=== PATIENT | female | born 1980 | race Caucasian/White ===

== ENCOUNTER 2018-10-27 16:42 | Emergency (ER) | payer MEDICAID ==
[~2018-10-27] VITALS: Ht 165.1 cm; Wt 56.7 kg
[2018-10-27 16:51] VITALS: BP 130/80
--- NOTE | 2018-10-27 17:04 | NUR ---
Patient ambulated to bed 8. RN evaluating patient at bedside.
--- NOTE | 2018-10-27 17:10 | NUR ---
C/O DIZZINESS & LUQ ABDOMINAL PAIN & DIABETIC NEUROPATHY X2 DAYS. DISCHARGE FROM [facility] 09/28/18 WITH DX : HYPOGLYCEMIA, SEVERE IMPACTION. PT STATES SHE HAS ANXIETY AND WANTS ATIVAN. PT DENIES N/V/D/FEVER. FSBS 232, PT STATES THIS IS A "NORMAL NUMBER FOR ME". ABDOMEN SOFT, FLAT, NON TENDER. LBM 10/25/18. SIDE RAIL UP X1, BED IN LOW POSITION
--- NOTE | 2018-10-27 17:20 | NUR ---
DR. NOBLE AT BEDSIDE
[2018-10-27] MEDS ORDERED: KETOROLAC 30 MG/ML VIAL IM ONE (17:25)
[2018-10-27 17:48] VITALS: BP 130/80
--- NOTE | 2018-10-27 17:49 | NUR ---
Patient discharged with v/s stable. Written and verbal after care instructions given and explained. Patient verbalized understanding. Ambulatory with steady gait. All questions addressed prior to discharge. Advised to follow up with PMD.
== END 2018-10-27 17:49 | disposition home or self-care (01) ==
LOC: MED 16:42
DX: E11.40 Type 2 diabetes mellitus with diabetic neuropathy, unspecified (principal); F17.210 Nicotine dependence, cigarettes, uncomplicated; Z76.5 Malingerer [conscious simulation]
CPT/HCPCS: 96372; 99283; J1885

== ENCOUNTER 2019-10-29 22:45 | Emergency (ER) | payer MEDICAID, OTHER ==
[~2019-10-29] VITALS: Ht 157.5 cm; Wt 61.2 kg
[2019-10-29 22:47] VITALS: BP 89/51
[2019-10-29] MEDS ORDERED: NACL 0.9% 1,000 ML IV ONE (23:40)
[2019-10-29] MEDS ORDERED: KETOROLAC 30 MG/ML VIAL IVP ONE (23:40)
[2019-10-29] MEDS ORDERED: ONDANSETRON 4 MG/2 ML VIAL IVP ONE (23:40)
[2019-10-30 00:33] LABS: BASOPHILS # (AUTO) 0.1 K/uL (0.00-0.22); BASOPHILS % (AUTO) 1.3 % (0.0-2.0); EOSINOPHILS # (AUTO) 0.1 K/uL (0-0.4); EOSINOPHILS % (AUTO) 1.6 % (0.0-4.0); HEMATOCRIT 32.5 % (36-48); HEMOGLOBIN 10.4 g/dL (12.0-16.0); LYMPHOCYTES # (AUTO) 1.8 K/uL (2.5-16.5); LYMPHOCYTES % (AUTO) 28.4 % (20.5-51.1); MEAN CORPUSCULAR HEMOGLOBIN 30 pg (27-31); MEAN CORPUSCULAR HGB CONC 32 g/dL (33-37); MEAN CORPUSCULAR VOLUME 94.1 fL (80-94); MONOCYTES # (AUTO) 0.5 K/uL (0.8-1.0); MONOCYTES % (AUTO) 7.6 % (1.7-9.3); NEUTROPHILS # (AUTO) 3.9 K/uL (1.8-7.7); NEUTROPHILS % (AUTO) 61.1 % (42.2-75.2); PLATELET COUNT (AUTO) 324 K/uL (140-450); RED BLOOD CELL COUNT(AUTO) 3.45 MIL/uL (4.20-5.40); WHITE BLOOD COUNT (AUTO) 6.3 K/uL (4.8-10.8)
[2019-10-30 00:40] LABS: ALBUMIN 3.3 g/dL (3.4-5.0); CARBON DIOXIDE 22.9 mmol/L (21-32); CREATININE 0.9 mg/dL (0.6-1.3); POTASSIUM 3.9 mmol/L (3.5-5.1); TOTAL BILIRUBIN 0.2 mg/dL (0.0-1.0)
[2019-10-30] MEDS ORDERED: INSULIN REGULAR, HUMAN 100 UNIT/ML VIAL IVP ONE (01:25)
[2019-10-30 01:54] VITALS: BP 101/66
== END 2019-10-30 02:26 | disposition home or self-care (01) ==
LOC: MED 22:45
DX: F10.129 Alcohol abuse with intoxication, unspecified (principal); E11.65 Type 2 diabetes mellitus with hyperglycemia; E07.9 Disorder of thyroid, unspecified; I10 Essential (primary) hypertension; N83.209 Unspecified ovarian cyst, unspecified side
CPT/HCPCS: 36415; 74176; 80053; 81002; 81025; 85025; 96361; 96374; 96375; 99284; G0482; J1815; J1885; J2405; J7030

== ENCOUNTER 2021-02-10 23:37 | Emergency (ER) | payer OTHER ==
[~2021-02-10] VITALS: Ht 162.6 cm; Wt 56.7 kg
[2021-02-10 23:39] VITALS: BP 115/78
--- NOTE | 2021-02-10 23:39 | NUR ---
Dr. Edward examining patient.
--- NOTE | 2021-02-10 23:39 | NUR ---
PT KELSIE MUNIZS. TAKEN TO BED 4
[2021-02-10] MEDS ORDERED: NACL 0.9% 1,000 ML IV ONE (23:45)
[2021-02-11 00:05] LABS: BASOPHILS # (AUTO) 0.1 K/uL (0.00-0.22); BASOPHILS % (AUTO) 1.5 % (0.0-2.0); EOSINOPHILS % (AUTO) 0.4 % (0.0-4.0); HEMATOCRIT 37.4 % (36-48); HEMOGLOBIN 12.5 g/dL (12.0-16.0); LYMPHOCYTES # (AUTO) 1.4 K/uL (2.5-16.5); LYMPHOCYTES % (AUTO) 21.4 % (20.5-51.1); MEAN CORPUSCULAR HEMOGLOBIN 31 pg (27-31); MEAN CORPUSCULAR HGB CONC 34 g/dL (33-37); MEAN CORPUSCULAR VOLUME 93.6 fL (80-94); MONOCYTES # (AUTO) 0.6 K/uL (0.8-1.0); MONOCYTES % (AUTO) 8.4 % (1.7-9.3); NEUTROPHILS # (AUTO) 4.6 K/uL (1.8-7.7); NEUTROPHILS % (AUTO) 68.3 % (42.2-75.2); PLATELET COUNT (AUTO) 386 K/uL (140-450); RED BLOOD CELL COUNT(AUTO) 3.99 MIL/uL (4.20-5.40); RED CELL DISTRIBUTION WIDTH 17.6 % (11.6-13.7); WHITE BLOOD COUNT (AUTO) 6.7 K/uL (4.8-10.8)
--- NOTE | 2021-02-11 00:22 | NUR ---
assisted patient on commode as patient can tolerate standing and pivoting
[2021-02-11 00:40] LABS: ALBUMIN 3.5 g/dL (3.4-5.0); ANION GAP 19.3 (8-16); ASPARTATE AMINOTRANSFERASE 168 U/L (15-37); CARBON DIOXIDE 25.9 mmol/L (21-32); CHLORIDE 102 mmol/L (98-107); CREATININE 0.7 mg/dL (0.6-1.3); GFR ARICAN-AMERICAN 120 mL/min (>90); GLUCOSE 103 mg/dL (74-106); POTASSIUM 3.2 mmol/L (3.5-5.1); SODIUM SERUM 144 mmol/L (136-145); TOTAL BILIRUBIN 0.7 mg/dL (0.0-1.0); UREA NITROGEN, BLOOD 7 mg/dL (7-18)
[2021-02-11 00:43] LABS: ACETONE, SERUM NEGATIVE (NEGATIVE)
[2021-02-11 00:44] LABS: SALICYLATE < 2.8 mg/dL (2.8-20.0)
--- NOTE | 2021-02-11 00:46 | NUR ---
swab collected and sent to lab received by blanka fernández
[2021-02-11 00:47] LABS: BILIRUBIN,URINE NEGATIVE (NEGATIVE); BLOOD, URINE NEGATIVE (NEGATIVE); LEUKOCYTE ESTERASE ,URINE 2+ (NEGATIVE); NITRITE, URINE POSITIVE (NEGATIVE); UGLUCOSE 1+ (NEGATIVE)
[2021-02-11 00:47] LABS: BARBITURATE, URINE NEGATIVE ng/ml (NEG <=200); BENZODIAZEPINE, URINE NEGATIVE ng/mL (NEG <=200); CANNABINOID, URINE NEGATIVE ng/mL (NEG <=50); COCAINE, URINE NEGATIVE ng/mL (NEG <=300); OPIATE, URINE POSITIVE ng/mL (NEG <=2000); PHENCYCLIDINE SCREEN,URINE NEGATIVE ng/mL (NEG <=25)
--- NOTE | 2021-02-11 00:47 | NUR ---
patient reports that patient is normally in isolation room d/t having MRSA "all over" ERMD and charge nurse made aware
--- NOTE | 2021-02-11 01:07 | NUR ---
patient c/o " a lot of pain. please please please i need it". ERMD made aware
--- NOTE | 2021-02-11 01:07 | NUR ---
patient was at [place] [id number]
[2021-02-11 01:15] LABS: APPEARANCE,URINE HAZY (CLEAR); COLOR,URINE ORANGE (YELLOW)
[2021-02-11 01:16] LABS: RBC,URINE 0-5 /HPF (0-5)
--- NOTE | 2021-02-11 01:21 | NUR ---
gave patient a kenisha ayala and OTaylor per request as patient reports "im hungry i havent eaten anything"
[2021-02-11] MEDS ORDERED: KETOROLAC 30 MG/ML VIAL IVP ONE (01:30)
--- NOTE | 2021-02-11 01:55 | NUR ---
GAVE PT TORADOL ORDERED. PT STATED THAT SHE WANTED MORPHINE. DR HERNÁNDEZ AT BEDSIDE TO ADVISE PT THAT WE CANNOT GIVE ANYTHING STRONGER. PT BECAME VERY ANGRY AND STARTED YELLING AND CALLING ERMD NAMES.
[2021-02-11] MEDS ORDERED: NITROFURANTOIN 100 MG CAP PO SCH (02:05)
[2021-02-11] MEDS ORDERED: NITR100C7 PO (02:21)
--- NOTE | 2021-02-11 03:26 | NUR ---
Patient appears to be resting comfortably in bed-- low fowlers with eyes closed. Vital Signs within normal limits. Respirations even and unlabored. AAOx4. VSS. no signs of distress noted. patient on monitor and safety measures are in place. will continue to monitor patient
--- NOTE | 2021-02-11 06:06 | NUR ---
assisted patient on commode as patient can tolerate standing and pivoting. patient tolerated well
[2021-02-11] MEDS ORDERED: METO25TE2 PO (06:21)
--- NOTE | 2021-02-11 06:21 | NUR ---
patient informed that she requested to speak with [employer] social [employer] teacher but reported that the ERMD denied request whilst i was at lunch
[2021-02-11 06:31] VITALS: BP 134/87
--- NOTE | 2021-02-11 06:31 | NUR ---
Patient discharged with v/s stable. Written and verbal after care instructions given and explained. Patient alert, oriented and verbalized understanding of instructions. Ambulatory with steady gait. All questions addressed prior to discharge. ID band removed. Patient advised to follow up with PMD. Rx of metoprolol succinate and macrobid 100mg capsule given. Patient educated on indication of medication including possible reaction and side effects. Opportunity to ask questions provided and answered.
== END 2021-02-11 06:31 | disposition home or self-care (01) ==
LOC: MED 23:37
DX: F10.129 Alcohol abuse with intoxication, unspecified (principal); Z20.822 Contact with and (suspected) exposure to COVID-19; F11.90 Opioid use, unspecified, uncomplicated; N39.0 Urinary tract infection, site not specified; R45.851 Suicidal ideations; E11.9 Type 2 diabetes mellitus without complications; I10 Essential (primary) hypertension; E07.9 Disorder of thyroid, unspecified; Z79.899 Other long term (current) drug therapy
CPT/HCPCS: 36415; 80053; 80305; 81001; 82009; 82948; 85025; 87086; 87426; 96361; 96374; 99283; G0480; G0482; J1885; J7030; U0003; 93005; 99285